=== PATIENT | male | born 1960 | race Two or more races ===

== ENCOUNTER 2020-08-21 18:23 | Emergency (ER) | payer OTHER ==
[~2020-08-21] VITALS: Ht 172.7 cm; Wt 108.9 kg
[2020-08-21 18:44] VITALS: BP 173/92
== END 2020-08-21 19:38 ==
LOC: ER 18:28
DX: Z04.89 Encounter for examination and observation for other specified reasons (principal); R05 Cough; J02.9 Acute pharyngitis, unspecified; R68.83 Chills (without fever); Z20.828 Contact with and (suspected) exposure to other viral communicable diseases; I10 Essential (primary) hypertension
CPT/HCPCS: 87426; 99283; C9803